=== PATIENT | male | born 1950 | race Caucasian/White ===

== ENCOUNTER 2019-03-17 15:33 | Emergency (ER) | payer MEDICARE ==
[~2019-03-17] VITALS: Ht 170.2 cm; Wt 74.0 kg
[2019-03-17] MEDS ORDERED: KEFLEX500 M1 PO (16:59)
[2019-03-17 17:03] VITALS: BP 100/65
== END 2019-03-17 17:10 | disposition home or self-care (01) ==
LOC: ED 15:33
PROC: 0HQMXZZ Repair Right Foot Skin, External Approach (ICD-10-PCS; principal; 2019-03-17)
DX: S91.114A Laceration without foreign body of right lesser toe(s) without damage to nail, initial encounter (principal); I10 Essential (primary) hypertension; E11.42 Type 2 diabetes mellitus with diabetic polyneuropathy; W27.8XXA Contact with other nonpowered hand tool, initial encounter; Y92.007 Garden or yard of unspecified non-institutional (private) residence as the place of occurrence of the external cause

== ENCOUNTER 2019-07-04 15:41 | Emergency (ER) | payer MEDICARE ==
[~2019-07-04] VITALS: Ht 170.2 cm; Wt 73.0 kg
[~2019-07-04 15:41] MED LIST: KEFLEX500 M1 PO
[2019-07-04] MEDS ORDERED: INDERAL10 M1 PO (16:34)
[2019-07-04] MEDS ORDERED: FUROSEMIDE20 MG PO (16:34)
[2019-07-04] MEDS ORDERED: ALDACTONE50 MG PO (16:35)
[2019-07-04] MEDS ORDERED: OMEPRAZOLE DR40 MG PO (16:35)
[2019-07-04] MEDS ORDERED: EZETIMIBE10 MG PO (16:35)
[2019-07-04] MEDS ORDERED: CLOPIDOGREL75 MG PO (16:36)
[2019-07-04] MEDS ORDERED: ROPINIROLE1 MG PO (16:36)
[2019-07-04 16:40] VITALS: BP 112/62
== END 2019-07-04 16:40 | disposition home or self-care (01) ==
LOC: ED 15:41
PROC: 0HQFXZZ Repair Right Hand Skin, External Approach (ICD-10-PCS; principal; 2019-07-04)
DX: S61.011A Laceration without foreign body of right thumb without damage to nail, initial encounter (principal); E11.40 Type 2 diabetes mellitus with diabetic neuropathy, unspecified; I10 Essential (primary) hypertension; W26.0XXA Contact with knife, initial encounter; Y93.89 Activity, other specified; Y92.009 Unspecified place in unspecified non-institutional (private) residence as the place of occurrence of the external cause

== ENCOUNTER 2019-07-23 13:05 | Emergency (ER) | payer MEDICARE ==
[~2019-07-23] VITALS: Ht 170.2 cm; Wt 75.0 kg
[~2019-07-23 13:05] MED LIST changes: +ALDACTONE50 MG PO; +CLOPIDOGREL75 MG PO; +EZETIMIBE10 MG PO; +FUROSEMIDE20 MG PO; +INDERAL10 M1 PO; +OMEPRAZOLE DR40 MG PO; +ROPINIROLE1 MG PO
[2019-07-23 13:28] LABS: HEMOGLOBIN 14.5 g/dl (14.0-18.0); IMMATURE GRANULOCYTES 0.6 % (0.0-5.0); MEAN CELL VOLUME 99.3 fL CALC (80.0-100.0); MEAN CORPUSCULAR HGB 32.7 pG CALC (26.0-32.0); NEUT# 10.54 thou/uL (1.82-7.42); RED BLOOD COUNT 4.43 mill/uL (4.70-6.10); RED CELL DISTRI WIDTH 14.7 % (11.5-15.5)
[2019-07-23 13:45] LABS: ALKALINE PHOSPHATASE 106 u/l (38-126); ANION GAP 13 (6-22 (CALC)); BILIRUBIN, TOTAL 1.7 mg/dL (0.0-1.4); BUN 17 mg/dL (8-23); BUN/CREATININE RATIO 21 (12-20 (CALC)); CARBON DIOXIDE 25 mmol/l (22-30); CHLORIDE 107 mmol/l (95-108); CREATININE 0.8 mg/dL (0.7-1.3); GFR > 60 ML/MIN (>=60 (CALC)); GFR FOR AFR.AMER. > 60 ML/MIN (>=60 (CALC)); LIPASE 153 u/l (23-300); SGOT/AST 33 u/l (19-48); SODIUM 141 mmol/l (137-146); TOTAL PROTEIN 7.1 g/dL (6.3-8.2)
[2019-07-23 14:53] LABS: URINE BILIRUBIN - DIPSTICK NEGATIVE (NEGATIVE); URINE BLOOD DIPSTICK NEGATIVE (NEGATIVE); URINE COLOR YELLOW; URINE GLUCOSE - DIPSTICK NEGATIVE (NEGATIVE); URINE KETONE NEGATIVE (NEGATIVE); URINE LEUK ESTERASE NEGATIVE (NEGATIVE); URINE NITRITE - DIPSTICK NEGATIVE (Negative); URINE PH 6.5 (4.5-8.0); URINE PROTEIN - DIPSTICK NEGATIVE (NEG-TRACE); URINE SPECIFIC GRAVITY 1.025
[2019-07-23 15:01] VITALS: BP 189/86
[2019-07-23] MEDS ORDERED: HYOSCYAMINE0.125 M3 PO (15:10)
== END 2019-07-23 15:23 | disposition home or self-care (01) ==
LOC: ED 13:05
PROVIDERS: Family Medicine
DX: K29.70 Gastritis, unspecified, without bleeding (principal); K25.9 Gastric ulcer, unspecified as acute or chronic, without hemorrhage or perforation; K21.9 Gastro-esophageal reflux disease without esophagitis; I10 Essential (primary) hypertension; E11.42 Type 2 diabetes mellitus with diabetic polyneuropathy
CPT/HCPCS: Q9967

== ENCOUNTER 2019-08-12 20:29 | Emergency (ER) | payer MEDICARE ==
[~2019-08-12] VITALS: Ht 170.2 cm; Wt 72.7 kg
[~2019-08-12 20:29] MED LIST changes: +HYOSCYAMINE0.125 M3 PO
[2019-08-12 22:15] LABS: HEMOGLOBIN 12.6 g/dl (14.0-18.0); IMMATURE GRANULOCYTES 0.6 % (0.0-5.0); MEAN CELL VOLUME 98.7 fL CALC (80.0-100.0); MEAN CORPUSCULAR HGB 33.4 pG CALC (26.0-32.0); MEAN CORPUSCULAR HGB CONC 33.9 g/L CALC (32.0-36.0); NEUT# 3.25 thou/uL (1.82-7.42); RED BLOOD COUNT 3.77 mill/uL (4.70-6.10); RED CELL DISTRI WIDTH 14.5 % (11.5-15.5)
[2019-08-12 22:17] LABS: GFR > 60 ML/MIN (>=60 (CALC)); GFR FOR AFR.AMER. > 60 ML/MIN (>=60 (CALC))
[2019-08-12 22:34] LABS: ALBUMIN 3.4 g/dL (3.2-5.0); ALKALINE PHOSPHATASE 94 u/l (38-126); ANION GAP 13 (6-22 (CALC)); BILIRUBIN, TOTAL 1.5 mg/dL (0.0-1.4); BUN 11 mg/dL (8-23); BUN/CREATININE RATIO 11 (12-20 (CALC)); CARBON DIOXIDE 20 mmol/l (22-30); CHLORIDE 112 mmol/l (95-108); GFR > 60 ML/MIN (>=60 (CALC)); GFR FOR AFR.AMER. > 60 ML/MIN (>=60 (CALC)); POTASSIUM 3.9 mmol/l (3.5-5.1); SGOT/AST 43 u/l (19-48); SODIUM 140 mmol/l (137-146); TOTAL PROTEIN 6.5 g/dL (6.3-8.2)
[2019-08-12 22:40] LABS: HEMATOCRIT 37.2 % (39.0-50.0)
[2019-08-12 22:45] VITALS: BP 132/78
== END 2019-08-12 22:54 | disposition short-term general hospital (02) ==
LOC: ED 20:29
PROVIDERS: Emergency Medicine
PROC: 0HQ1XZZ Repair Face Skin, External Approach (ICD-10-PCS; principal; 2019-08-12)
DX: S12.110A Anterior displaced Type II dens fracture, initial encounter for closed fracture (principal); S01.81XA Laceration without foreign body of other part of head, initial encounter; I10 Essential (primary) hypertension; E11.42 Type 2 diabetes mellitus with diabetic polyneuropathy; W18.2XXA Fall in (into) shower or empty bathtub, initial encounter; Y93.E1 Activity, personal bathing and showering
CPT/HCPCS: J3360; Q9967

== ENCOUNTER 2020-02-24 | Emergency (ER) | payer MEDICARE ==
[2020-02-24] MEDS ORDERED: OXYCODONE5 MG PO (18:35)
== END 2020-02-24 19:25 | disposition home or self-care (01) ==
PROC: 2W3CX1Z Immobilization of Right Lower Arm using Splint (ICD-10-PCS; principal; 2020-02-24)
DX: S52.501A Unspecified fracture of the lower end of right radius, initial encounter for closed fracture (principal); S52.601A Unspecified fracture of lower end of right ulna, initial encounter for closed fracture; I10 Essential (primary) hypertension; E11.42 Type 2 diabetes mellitus with diabetic polyneuropathy; W18.30XA Fall on same level, unspecified, initial encounter; Y92.009 Unspecified place in unspecified non-institutional (private) residence as the place of occurrence of the external cause

== ENCOUNTER 2020-02-27 11:36 | Emergency (ER) | payer MEDICARE ==
[~2020-02-27 11:36] MED LIST changes: +OXYCODONE5 MG PO
[2020-02-27 13:09] LABS: IMMATURE GRANULOCYTES 0.3 % (0.0-5.0); MEAN CELL VOLUME 97.3 fL CALC (80.0-100.0); MEAN CORPUSCULAR HGB 31.5 pG CALC (26.0-32.0); MEAN CORPUSCULAR HGB CONC 32.4 g/dL CAL (32.0-36.0); NEUT# 4.82 thou/uL (1.82-7.42); RED BLOOD COUNT 2.95 mill/uL (4.70-6.10); RED CELL DISTRI WIDTH 16.6 % (11.5-15.5)
[2020-02-27 13:12] LABS: HEMATOCRIT 28.7 % (39.0-50.0); HEMOGLOBIN 9.3 g/dl (14.0-18.0)
[2020-02-27 13:24] LABS: ACT PARTIAL THROMBO TIME 26.1 SECONDS (20.0-32.5); INTERNATIONAL NORMALIZED RATIO 1.2 RATIO (0.7-1.3); PROTHROMBIN TIME 12.5 SECONDS (9.0-12.5)
[2020-02-27 13:25] LABS: ALBUMIN 2.8 g/dL (3.2-5.0); ALKALINE PHOSPHATASE 81 u/l (38-126); ANION GAP 9 (6-22 (CALC)); BILIRUBIN, TOTAL 1.5 mg/dL (0.0-1.4); BUN 16 mg/dL (8-23); BUN/CREATININE RATIO 19 (12-20 (CALC)); CARBON DIOXIDE 21 mmol/l (22-30); CHLORIDE 109 mmol/l (95-108); CREATININE 0.8 mg/dL (0.7-1.3); GFR > 60 ML/MIN (>=60 (CALC)); GFR FOR AFR.AMER. > 60 ML/MIN (>=60 (CALC)); POTASSIUM 3.3 mmol/l (3.5-5.1); SGOT/AST 37 u/l (19-48); SODIUM 135 mmol/l (137-146); TOTAL PROTEIN 5.8 g/dL (6.3-8.2)
[2020-02-27 13:44] VITALS: BP 121/62
== END 2020-02-27 13:44 | disposition short-term general hospital (02) ==
LOC: ED 11:36
PROC: 0HQ0XZZ Repair Scalp Skin, External Approach (ICD-10-PCS; principal; 2020-02-27)
DX: S06.6X0A Traumatic subarachnoid hemorrhage without loss of consciousness, initial encounter (principal); S01.01XA Laceration without foreign body of scalp, initial encounter; I10 Essential (primary) hypertension; E11.42 Type 2 diabetes mellitus with diabetic polyneuropathy; W18.39XA Other fall on same level, initial encounter; Y92.007 Garden or yard of unspecified non-institutional (private) residence as the place of occurrence of the external cause; Z98.1 Arthrodesis status; Z91.81 History of falling

== ENCOUNTER 2020-03-04 09:21 | Emergency (ER) | payer MEDICARE ==
[2020-03-04] MEDS ORDERED: LACTULOSE10 GM PO (10:04)
[2020-03-04 10:30] LABS: HEMATOCRIT 31.9 % (39.0-50.0); HEMOGLOBIN 10.1 g/dl (14.0-18.0); IMMATURE GRANULOCYTES 0.4 % (0.0-5.0); MEAN CELL VOLUME 98.2 fL CALC (80.0-100.0); MEAN CORPUSCULAR HGB 31.1 pG CALC (26.0-32.0); MEAN CORPUSCULAR HGB CONC 31.7 g/dL CAL (32.0-36.0); NEUT# 4.06 thou/uL (1.82-7.42); RED BLOOD COUNT 3.25 mill/uL (4.70-6.10); RED CELL DISTRI WIDTH 15.9 % (11.5-15.5)
[2020-03-04 10:31] LABS: URINE BILIRUBIN - DIPSTICK NEGATIVE (NEGATIVE); URINE BLOOD DIPSTICK NEGATIVE (NEGATIVE); URINE COLOR YELLOW; URINE GLUCOSE - DIPSTICK NEGATIVE (NEGATIVE); URINE KETONE NEGATIVE (NEGATIVE); URINE LEUK ESTERASE NEGATIVE (NEGATIVE); URINE NITRITE - DIPSTICK NEGATIVE (Negative); URINE PH 6.5 (4.5-8.0); URINE PROTEIN - DIPSTICK NEGATIVE (NEG-TRACE); URINE SPECIFIC GRAVITY 1.015
[2020-03-04 10:32] LABS: ALBUMIN 3.2 g/dL (3.2-5.0); ALKALINE PHOSPHATASE 110 u/l (38-126); BILIRUBIN, TOTAL 1.2 mg/dL (0.0-1.4); BUN 15 mg/dL (8-23); BUN/CREATININE RATIO 17 (12-20 (CALC)); CARBON DIOXIDE 22 mmol/l (22-30); CHLORIDE 108 mmol/l (95-108); CREATININE 0.9 mg/dL (0.7-1.3); GFR > 60 ML/MIN (>=60 (CALC)); GFR FOR AFR.AMER. > 60 ML/MIN (>=60 (CALC)); LIPASE 116 u/l (23-300); SGOT/AST 44 u/l (19-48); SODIUM 136 mmol/l (137-146); TOTAL PROTEIN 6.3 g/dL (6.3-8.2)
[2020-03-04 10:46] LABS: ANION GAP 10 (6-22 (CALC)); POTASSIUM 4.4 mmol/l (3.5-5.1)
[2020-03-04] MEDS ORDERED: TRAMADOL HYDROC50 M1 PO (11:45)
[2020-03-04 12:49] VITALS: BP 125/61
== END 2020-03-04 12:59 | disposition home or self-care (01) ==
LOC: ED 09:21
PROVIDERS: Family Medicine
DX: R10.84 Generalized abdominal pain (principal); M54.6 Pain in thoracic spine; I10 Essential (primary) hypertension; E11.42 Type 2 diabetes mellitus with diabetic polyneuropathy; Z86.79 Personal history of other diseases of the circulatory system
CPT/HCPCS: Q9967

== ENCOUNTER 2020-06-28 09:33 | Emergency (ER) | payer MEDICARE ==
[~2020-06-28] VITALS: Ht 170.2 cm; Wt 80.0 kg
[~2020-06-28 09:33] MED LIST changes: +LACTULOSE10 GM PO; +TRAMADOL HYDROC50 M1 PO
[2020-06-28] MEDS ORDERED: AMOXICILLIN500 MG PO (10:41)
[2020-06-28 10:53] VITALS: BP 137/73
== END 2020-06-28 10:48 | disposition home or self-care (01) ==
LOC: ED 09:33
PROC: 0HCNXZZ Extirpation of Matter from Left Foot Skin, External Approach (ICD-10-PCS; principal; 2020-06-28)
DX: S91.142A Puncture wound with foreign body of left great toe without damage to nail, initial encounter (principal); I10 Essential (primary) hypertension; E11.42 Type 2 diabetes mellitus with diabetic polyneuropathy; W60.XXXA Contact with nonvenomous plant thorns and spines and sharp leaves, initial encounter

== ENCOUNTER 2020-07-08 17:03 | Emergency (ER) | payer MEDICARE ==
[~2020-07-08] VITALS: Ht 170.2 cm; Wt 68.2 kg
[~2020-07-08 17:03] MED LIST changes: +AMOXICILLIN500 MG PO
[2020-07-08 17:25] VITALS: BP 128/61
== END 2020-07-08 17:25 | disposition home or self-care (01) ==
LOC: ED 17:03
DX: S91.112D Laceration without foreign body of left great toe without damage to nail, subsequent encounter (principal); I10 Essential (primary) hypertension; E11.42 Type 2 diabetes mellitus with diabetic polyneuropathy; X58.XXXD Exposure to other specified factors, subsequent encounter

== ENCOUNTER 2021-02-24 09:29 | Emergency (ER) | payer MEDICARE ==
[~2021-02-24] VITALS: Ht 170.2 cm; Wt 68.0 kg
[~2021-02-24 09:29] MED LIST changes: +ESCITALOPRAM OX10 MG PO; +GENERLAC10 GM/15 M PO; +NEURONTIN300 MG PO; +NITROSTAT0.4 MG SL; +ROPINIROLE HCL2 MG PO; +ROSUVASTATIN CA40 MG PO
[2021-02-24] MEDS ORDERED: CEPHALEXIN500 MG PO (10:44)
[2021-02-24] MEDS ORDERED: TRAMADOL HYDROC50 M1 PO (11:25)
[2021-02-24 11:56] VITALS: BP 125/76
== END 2021-02-24 11:56 | disposition home or self-care (01) ==
LOC: ED 09:29
PROC: 0HQMXZZ Repair Right Foot Skin, External Approach (ICD-10-PCS; principal; 2021-02-24)
DX: S91.011A Laceration without foreign body, right ankle, initial encounter (principal); R07.81 Pleurodynia; I10 Essential (primary) hypertension; E11.42 Type 2 diabetes mellitus with diabetic polyneuropathy; E78.00 Pure hypercholesterolemia, unspecified; K74.60 Unspecified cirrhosis of liver; Z95.1 Presence of aortocoronary bypass graft; W01.0XXA Fall on same level from slipping, tripping and stumbling without subsequent striking against object, initial encounter

== ENCOUNTER 2021-03-28 21:21 | Emergency (ER) | payer MEDICARE ==
[~2021-03-28] VITALS: Ht 170.2 cm; Wt 77.0 kg
[~2021-03-28 21:21] MED LIST changes: +CEPHALEXIN500 MG PO
[2021-03-28 21:58] LABS: URINE BLOOD DIPSTICK MODERATE (NEGATIVE); URINE GLUCOSE - DIPSTICK NEGATIVE (NEGATIVE); URINE KETONE TRACE mg/dL (NEGATIVE); URINE LEUK ESTERASE TRACE (NEGATIVE); URINE PROTEIN - DIPSTICK TRACE mg/dL (NEG-TRACE); URINE UROBILINOGEN - DIPSTICK >=8.0 E.U./dL (0.2)
[2021-03-28 22:00] LABS: URINE BILIRUBIN - DIPSTICK SMALL (NEGATIVE); URINE COLOR AMBER; URINE NITRITE - DIPSTICK POSITIVE (Negative)
[2021-03-28 22:07] LABS: HEMOGLOBIN 12.6 g/dl (14.0-18.0); IMMATURE GRANULOCYTES 0.5 % (0.0-5.0); MEAN CELL VOLUME 95.1 fL CALC (80.0-100.0); MEAN CORPUSCULAR HGB 32.4 pG CALC (26.0-32.0); MEAN CORPUSCULAR HGB CONC 34.1 g/dL CAL (32.0-36.0); NEUT# 4.45 thou/uL (1.82-7.42); RED BLOOD COUNT 3.89 mill/uL (4.70-6.10); RED CELL DISTRI WIDTH 14.4 % (11.5-15.5)
[2021-03-28 22:14] LABS: URINE BACTERIA RARE hpf
[2021-03-28 22:31] LABS: INTERNATIONAL NORMALIZED RATIO 1.1 RATIO (0.7-1.3); PROTHROMBIN TIME 11.6 SECONDS (9.0-12.5)
[2021-03-28 22:32] LABS: ALKALINE PHOSPHATASE 79 u/l (38-126); AMYLASE 59 u/l (30-110); BUN 13 mg/dL (8-23); BUN/CREATININE RATIO 18 (12-20 (CALC)); CARBON DIOXIDE 22 mmol/l (22-30); CHLORIDE 100 mmol/l (95-108); CREATININE 0.7 mg/dL (0.7-1.3); ETHYL ALCOHOL 0 mg/dl (0-30); GFR > 60 ML/MIN (>=60 (CALC)); GFR FOR AFR.AMER. > 60 ML/MIN (>=60 (CALC)); LIPASE 69 u/l (23-300); POTASSIUM 3.4 mmol/l (3.5-5.1); SGOT/AST 48 u/l (19-48); TOTAL PROTEIN 6.2 g/dL (6.3-8.2)
[2021-03-28 22:39] LABS: ANION GAP 10 (6-22 (CALC)); BILIRUBIN, TOTAL 1.7 mg/dL (0.0-1.4); SODIUM 129 mmol/l (137-146)
[2021-03-28 22:44] LABS: MYOGLOBIN 69 ng/mL (0 - 121)
[2021-03-29] MEDS ORDERED: KEFLEX500 MG PO (01:10)
[2021-03-29 01:13] VITALS: BP 127/62
== END 2021-03-29 01:25 | disposition home or self-care (01) ==
LOC: ED 21:21
PROVIDERS: Emergency Medicine
DX: N39.0 Urinary tract infection, site not specified (principal); K74.60 Unspecified cirrhosis of liver; I10 Essential (primary) hypertension; E11.42 Type 2 diabetes mellitus with diabetic polyneuropathy; E78.00 Pure hypercholesterolemia, unspecified; R16.1 Splenomegaly, not elsewhere classified; K76.6 Portal hypertension; B96.1 Klebsiella pneumoniae [K. pneumoniae] as the cause of diseases classified elsewhere; Z95.1 Presence of aortocoronary bypass graft; Z20.822 Contact with and (suspected) exposure to COVID-19
CPT/HCPCS: Q9967

== ENCOUNTER 2022-03-28 12:54 | Observation (INO) | payer MEDICARE ==
[~2022-03-28] VITALS: Ht 170.2 cm; Wt 78.0 kg
[2022-03-28] VITALS (11 sets, daily range): BP systolic 102–158; BP diastolic 49–88
[~2022-03-28 12:54] MED LIST changes: +KEFLEX500 MG PO
[2022-03-28 13:21] LABS: HEMATOCRIT 37.4 % (39.0-50.0); HEMOGLOBIN 12.3 g/dl (14.0-18.0); IMMATURE GRANULOCYTES 1.2 % (0.0-5.0); MEAN CELL VOLUME 99.7 fL CALC (80.0-100.0); MEAN CORPUSCULAR HGB 32.8 pG CALC (26.0-32.0); MEAN CORPUSCULAR HGB CONC 32.9 g/dL CAL (32.0-36.0); NEUT# 1.89 thou/uL (1.82-7.42); RED BLOOD COUNT 3.75 mill/uL (4.70-6.10); RED CELL DISTRI WIDTH 14.3 % (11.5-15.5)
[2022-03-28 13:39] LABS: ALKALINE PHOSPHATASE 84 u/l (38-126); BILIRUBIN, TOTAL 1.3 mg/dL (0.0-1.4); BUN 11 mg/dL (8-23); BUN/CREATININE RATIO 13 (12-20 (CALC)); CARBON DIOXIDE 23 mmol/l (22-30); CHLORIDE 109 mmol/l (95-108); CREATININE 0.8 mg/dL (0.7-1.3); GFR FOR AFR.AMER. > 60 ML/MIN (>=60 (CALC)); GFR OTHER RACES > 60 ML/MIN (>=60 (CALC)); LIPASE 279 u/l (23-300); POTASSIUM 3.9 mmol/l (3.5-5.1); TOTAL PROTEIN 6.9 g/dL (6.3-8.2)
[2022-03-28 13:41] LABS: INTERNATIONAL NORMALIZED RATIO 1.2 RATIO (0.7-1.3); PROTHROMBIN TIME 12.1 SECONDS (9.0-12.5)
[2022-03-28 13:49] LABS: ALBUMIN 3.7 g/dL (3.2-5.0); ANION GAP 9 (6-22 (CALC)); SGOT/AST 96 u/l (19-48); SODIUM 137 mmol/l (137-146)
[2022-03-28 13:51] LABS: MYOGLOBIN 107 ng/mL (0 - 121)
[2022-03-28] MEDS ORDERED: METOPROL TAR25 MG PO (14:38)
[2022-03-28] MEDS ORDERED: ISOSORB MONO20 MG PO (14:40)
[2022-03-28] MEDS ORDERED: ASPIRIN81 MG PO (14:41)
[2022-03-29] VITALS (7 sets, daily range): BP systolic 133–156; BP diastolic 68–75
[2022-03-29 05:48] LABS: CHOLESTEROL HDL RATIO 1.8 (<4.4 (CALC)); MAGNESIUM 1.9 mg/dL (1.6-2.3)
[2022-03-29] MEDS ORDERED: ZPAK PO (11:50)
== END 2022-03-29 13:36 | disposition home or self-care (01) ==
LOC: ED 12:54 → ED-I 14:22 → ED 15:24 → MS2 15:25
PROVIDERS: Nurse Practitioner; ADMIT Internal Medicine; ATTEND Internal Medicine
DX: U07.1 COVID-19 (principal); J40 Bronchitis, not specified as acute or chronic; M94.0 Chondrocostal junction syndrome [Tietze]; I11.0 Hypertensive heart disease with heart failure; I50.9 Heart failure, unspecified; I25.10 Atherosclerotic heart disease of native coronary artery without angina pectoris; E78.5 Hyperlipidemia, unspecified; F32.A Depression, unspecified; G62.9 Polyneuropathy, unspecified; K74.60 Unspecified cirrhosis of liver

== ENCOUNTER → 2022-07-13 | Emergency (ER) | payer MEDICARE ==
[~2022-07-13] VITALS: Ht 170.2 cm; Wt 78.0 kg
[~2022-07-13] MED LIST changes: +ASPIRIN81 MG PO; +ISOSORB MONO20 MG PO; +METOPROL TAR25 MG PO; +NAPROXEN500 MG PO; +ZPAK PO
[2022-07-13 18:25] VITALS: BP 124/74
== END | disposition home or self-care (01) ==
LOC: ED 17:19
DX: S80.01XA Contusion of right knee, initial encounter (principal); S80.812A Abrasion, left lower leg, initial encounter; I10 Essential (primary) hypertension; E11.42 Type 2 diabetes mellitus with diabetic polyneuropathy; E78.00 Pure hypercholesterolemia, unspecified; Z95.1 Presence of aortocoronary bypass graft; W01.0XXA Fall on same level from slipping, tripping and stumbling without subsequent striking against object, initial encounter; Y93.H9 Activity, other involving exterior property and land maintenance, building and construction; Y92.007 Garden or yard of unspecified non-institutional (private) residence as the place of occurrence of the external cause

== ENCOUNTER 2022-08-02 12:47 | Emergency (ER) | payer MEDICARE ==
[~2022-08-02] VITALS: Ht 170.2 cm; Wt 81.8 kg
[2022-08-02] MEDS ORDERED: HYDROCO/APAP1 TA9 PO (15:08)
[2022-08-02] MEDS ORDERED: KEFLEX500 MG PO (15:08)
[2022-08-02 15:27] VITALS: BP 140/69
== END 2022-08-02 15:35 | disposition home or self-care (01) ==
LOC: ED 12:47
PROC: 0HQFXZZ Repair Right Hand Skin, External Approach (ICD-10-PCS; principal; 2022-08-02)
DX: S61.011A Laceration without foreign body of right thumb without damage to nail, initial encounter (principal); I10 Essential (primary) hypertension; E78.00 Pure hypercholesterolemia, unspecified; K74.60 Unspecified cirrhosis of liver; E11.42 Type 2 diabetes mellitus with diabetic polyneuropathy; W31.2XXA Contact with powered woodworking and forming machines, initial encounter; Y93.89 Activity, other specified; Y92.009 Unspecified place in unspecified non-institutional (private) residence as the place of occurrence of the external cause

== ENCOUNTER 2022-08-04 08:29 | Emergency (ER) | payer MEDICARE ==
[~2022-08-04] VITALS: Ht 170.2 cm; Wt 81.0 kg
[~2022-08-04 08:29] MED LIST changes: +HYDROCO/APAP1 TA9 PO
[2022-08-04] MEDS ORDERED: FUROSEMIDE20 MG PO (08:51)
[2022-08-04] MEDS ORDERED: ALDACTONE50 MG PO (08:51)
[2022-08-04 08:58] VITALS: BP 111/73
== END 2022-08-04 09:12 | disposition home or self-care (01) ==
LOC: ED 08:29
DX: S61.011D Laceration without foreign body of right thumb without damage to nail, subsequent encounter (principal); W31.2XXD Contact with powered woodworking and forming machines, subsequent encounter; I10 Essential (primary) hypertension; E11.42 Type 2 diabetes mellitus with diabetic polyneuropathy; E78.00 Pure hypercholesterolemia, unspecified; K74.60 Unspecified cirrhosis of liver

== ENCOUNTER 2022-11-15 13:51 | Emergency (ER) | payer MEDICARE ==
[~2022-11-15] VITALS: Ht 170.2 cm; Wt 70.0 kg
[2022-11-15] MEDS ORDERED: KEFLEX500 MG PO (19:22)
[2022-11-15] MEDS ORDERED: METHOCARBAMOL500 MG PO (19:22)
[2022-11-15] MEDS ORDERED: HYDROCO/APAP1 TA9 PO (19:22)
[2022-11-15] MEDS ORDERED: CIPROFLOXACN500 MG PO (19:22)
[2022-11-15 19:27] VITALS: BP 125/68
== END 2022-11-15 19:45 | disposition home or self-care (01) ==
LOC: ED 13:51
DX: S20.222A Contusion of left back wall of thorax, initial encounter (principal); S63.502A Unspecified sprain of left wrist, initial encounter; S91.331A Puncture wound without foreign body, right foot, initial encounter; I10 Essential (primary) hypertension; E11.42 Type 2 diabetes mellitus with diabetic polyneuropathy; E78.00 Pure hypercholesterolemia, unspecified; K74.60 Unspecified cirrhosis of liver; W18.39XA Other fall on same level, initial encounter; Y92.009 Unspecified place in unspecified non-institutional (private) residence as the place of occurrence of the external cause; W22.8XXA Striking against or struck by other objects, initial encounter; Y92.89 Other specified places as the place of occurrence of the external cause; Z91.81 History of falling

== ENCOUNTER 2022-11-22 03:46 | Emergency (ER) | payer MEDICARE ==
[~2022-11-22] VITALS: Ht 170.2 cm; Wt 73.0 kg
[~2022-11-22 03:46] MED LIST changes: +CIPROFLOXACN500 MG PO; +METHOCARBAMOL500 MG PO
[2022-11-22 03:52] VITALS: BP 123/73
[2022-11-22 04:00] VITALS: BP 122/64
[2022-11-22 04:15] VITALS: BP 103/59
[2022-11-22] MEDS ORDERED: BACTRIM DS1 TAB PO (04:16)
[2022-11-22 04:34] VITALS: BP 122/64
== END 2022-11-22 04:36 | disposition home or self-care (01) ==
LOC: ED 03:46
PROC: 0HCGXZZ Extirpation of Matter from Left Hand Skin, External Approach (ICD-10-PCS; principal; 2022-11-22)
DX: S61.243A Puncture wound with foreign body of left middle finger without damage to nail, initial encounter (principal); I10 Essential (primary) hypertension; E78.00 Pure hypercholesterolemia, unspecified; E11.42 Type 2 diabetes mellitus with diabetic polyneuropathy; K74.60 Unspecified cirrhosis of liver; W26.8XXA Contact with other sharp object(s), not elsewhere classified, initial encounter; Y92.009 Unspecified place in unspecified non-institutional (private) residence as the place of occurrence of the external cause; Z95.1 Presence of aortocoronary bypass graft

== ENCOUNTER 2023-01-07 22:46 | Emergency (ER) | payer MEDICARE ==
[~2023-01-07] VITALS: Ht 170.2 cm; Wt 77.0 kg
[~2023-01-07 22:46] MED LIST changes: +BACTRIM DS1 TAB PO
[2023-01-07 22:58] VITALS: BP 146/77
[2023-01-07 23:01] VITALS: BP 152/76
[2023-01-08] VITALS: BP 128/65
[2023-01-08 00:15] VITALS: BP 124/65
[2023-01-08 00:30] VITALS: BP 121/62
[2023-01-08 00:46] VITALS: BP 124/71
== END 2023-01-08 00:54 | disposition home or self-care (01) ==
LOC: ED 22:46
DX: S00.83XA Contusion of other part of head, initial encounter (principal); S16.1XXA Strain of muscle, fascia and tendon at neck level, initial encounter; I10 Essential (primary) hypertension; E78.00 Pure hypercholesterolemia, unspecified; K74.60 Unspecified cirrhosis of liver; E11.42 Type 2 diabetes mellitus with diabetic polyneuropathy; Z95.1 Presence of aortocoronary bypass graft; W01.0XXA Fall on same level from slipping, tripping and stumbling without subsequent striking against object, initial encounter; Y92.008 Other place in unspecified non-institutional (private) residence as the place of occurrence of the external cause; Z79.01 Long term (current) use of anticoagulants; Z79.02 Long term (current) use of antithrombotics/antiplatelets

== ENCOUNTER 2023-04-01 19:47 | Emergency (ER) | payer MEDICARE ==
[~2023-04-01] VITALS: Ht 170.2 cm; Wt 77.0 kg
[2023-04-01 19:55] VITALS: BP 117/62
[2023-04-01 20:31] VITALS: BP 116/64
== END 2023-04-01 20:35 | disposition home or self-care (01) ==
LOC: ED 19:47
PROC: 0HQ1XZZ Repair Face Skin, External Approach (ICD-10-PCS; principal; 2023-04-01)
DX: S01.112A Laceration without foreign body of left eyelid and periocular area, initial encounter (principal); I10 Essential (primary) hypertension; E11.42 Type 2 diabetes mellitus with diabetic polyneuropathy; E78.00 Pure hypercholesterolemia, unspecified; K74.60 Unspecified cirrhosis of liver; W19.XXXA Unspecified fall, initial encounter

== ENCOUNTER 2023-04-24 10:41 | Emergency (ER) | payer OTHER, MEDICARE ==
[~2023-04-24] VITALS: Ht 170.2 cm; Wt 74.8 kg
[2023-04-24] MEDS ORDERED: CEPHALEXIN500 MG PO (11:54)
[2023-04-24] MEDS ORDERED: TRAMADOL HYDROC50 M1 PO (11:54)
[2023-04-24 12:15] VITALS: BP 160/89
== END 2023-04-24 12:25 | disposition home or self-care (01) | DRG 605 ==
LOC: ED 10:41
PROC: 0HQGXZZ Repair Left Hand Skin, External Approach (ICD-10-PCS; principal; 2023-04-24)
DX: S61.012A Laceration without foreign body of left thumb without damage to nail, initial encounter (principal); W29.8XXA Contact with other powered hand tools and household machinery, initial encounter; I10 Essential (primary) hypertension; E11.9 Type 2 diabetes mellitus without complications; E78.00 Pure hypercholesterolemia, unspecified; K74.60 Unspecified cirrhosis of liver; Z95.1 Presence of aortocoronary bypass graft

== ENCOUNTER 2023-07-02 19:10 | Emergency (ER) | payer MEDICARE ==
[~2023-07-02] VITALS: Ht 170.2 cm; Wt 77.0 kg
[2023-07-02 20:55] VITALS: BP 158/79
== END 2023-07-02 20:58 | disposition home or self-care (01) ==
LOC: ED 19:10
PROC: 0HQFXZZ Repair Right Hand Skin, External Approach (ICD-10-PCS; principal; 2023-07-02)
DX: S61.011A Laceration without foreign body of right thumb without damage to nail, initial encounter (principal); I10 Essential (primary) hypertension; E11.42 Type 2 diabetes mellitus with diabetic polyneuropathy; E78.00 Pure hypercholesterolemia, unspecified; K74.60 Unspecified cirrhosis of liver; W45.8XXA Other foreign body or object entering through skin, initial encounter; Y93.E9 Activity, other interior property and clothing maintenance; Y92.000 Kitchen of unspecified non-institutional (private) residence as the place of occurrence of the external cause

== ENCOUNTER 2024-04-28 20:30 | Emergency (ER) | payer MEDICARE ==
[~2024-04-28] VITALS: Ht 170.2 cm; Wt 81.0 kg
[2024-04-28] MEDS ORDERED: KETOROLAC TROMETHAMINE 30 MG/ML SDV IM ONE (21:25)
[2024-04-28 23:21] VITALS: BP 108/74
== END 2024-04-28 22:51 | disposition home or self-care (01) ==
LOC: ED 20:30
DX: S40.022A Contusion of left upper arm, initial encounter (principal); I10 Essential (primary) hypertension; E11.42 Type 2 diabetes mellitus with diabetic polyneuropathy; E78.5 Hyperlipidemia, unspecified; K74.60 Unspecified cirrhosis of liver; W10.9XXA Fall (on) (from) unspecified stairs and steps, initial encounter; Y92.009 Unspecified place in unspecified non-institutional (private) residence as the place of occurrence of the external cause; Z87.81 Personal history of (healed) traumatic fracture; Z95.1 Presence of aortocoronary bypass graft

== ENCOUNTER 2024-05-05 18:20 | Emergency (ER) | payer MEDICARE ==
[~2024-05-05] VITALS: Ht 170.2 cm; Wt 81.2 kg
[2024-05-05 18:37] VITALS: BP 122/60
[2024-05-05] MEDS ORDERED: POVIDONE IODINE 0.5 OZ/BTL TOP ONE (18:40)
[2024-05-05] MEDS ORDERED: SODIUM CHLORIDE 500 ML BTL IR ONE (18:40)
[2024-05-05] MEDS ORDERED: LIDOcaine HCl 1% (Local Anesth.) 20 ML VIAL STI STA (18:40)
[2024-05-05] MEDS ORDERED: NEOMYCIN-BACITRACIN-POLYMYXIN 0.5 GM/PAK PAK TOP ONE (18:40)
[2024-05-05 18:46] VITALS: BP 113/67
[2024-05-05 19:00] VITALS: BP 121/67
[2024-05-05] MEDS ORDERED: KEFLEX500 MG PO (19:12)
[2024-05-05 19:16] VITALS: BP 134/75
[2024-05-05 19:31] VITALS: BP 137/62
[2024-05-05 19:47] VITALS: BP 144/73
== END 2024-05-05 19:55 | disposition home or self-care (01) ==
LOC: ED 18:20
PROC: 0HQFXZZ Repair Right Hand Skin, External Approach (ICD-10-PCS; principal; 2024-05-05)
DX: S61.411A Laceration without foreign body of right hand, initial encounter (principal); S61.011A Laceration without foreign body of right thumb without damage to nail, initial encounter; I10 Essential (primary) hypertension; E11.42 Type 2 diabetes mellitus with diabetic polyneuropathy; E78.00 Pure hypercholesterolemia, unspecified; K74.60 Unspecified cirrhosis of liver; W27.0XXA Contact with workbench tool, initial encounter

== ENCOUNTER 2024-05-10 11:56 | Emergency (ER) | payer MEDICARE ==
[~2024-05-10] VITALS: Ht 165.1 cm; Wt 81.2 kg
[2024-05-10 12:04] VITALS: BP 114/68
[2024-05-10] MEDS ORDERED: CEPHALEXIN500 M1 PO (12:10)
[2024-05-10 12:16] VITALS: BP 121/63
== END 2024-05-10 12:23 | disposition home or self-care (01) ==
LOC: ED 11:56
DX: T81.33XA Disruption of traumatic injury wound repair, initial encounter (principal); I10 Essential (primary) hypertension; E11.42 Type 2 diabetes mellitus with diabetic polyneuropathy; E78.00 Pure hypercholesterolemia, unspecified; K74.60 Unspecified cirrhosis of liver; Y83.8 Other surgical procedures as the cause of abnormal reaction of the patient, or of later complication, without mention of misadventure at the time of the procedure; Z95.1 Presence of aortocoronary bypass graft

== ENCOUNTER 2024-07-24 17:29 | Emergency (ER) | payer MEDICARE ==
[2024-07-24] VITALS (10 sets, daily range): BP systolic 81–112; BP diastolic 32–66
[~2024-07-24] VITALS: Ht 165.1 cm; Wt 77.0 kg
[~2024-07-24 17:29] MED LIST changes: +CEPHALEXIN500 M1 PO
== END 2024-07-24 20:03 | disposition home or self-care (01) ==
LOC: ED 17:29
DX: S20.212A Contusion of left front wall of thorax, initial encounter (principal); I10 Essential (primary) hypertension; E11.42 Type 2 diabetes mellitus with diabetic polyneuropathy; E78.5 Hyperlipidemia, unspecified; K70.30 Alcoholic cirrhosis of liver without ascites; W01.198A Fall on same level from slipping, tripping and stumbling with subsequent striking against other object, initial encounter; Y92.009 Unspecified place in unspecified non-institutional (private) residence as the place of occurrence of the external cause; Z95.1 Presence of aortocoronary bypass graft; Z95.5 Presence of coronary angioplasty implant and graft

== ENCOUNTER 2024-10-05 11:43 | Emergency (ER) | payer MEDICARE ==
[2024-10-05] VITALS (12 sets, daily range): BP systolic 103–127; BP diastolic 51–72
[~2024-10-05] VITALS: Ht 170.2 cm; Wt 74.0 kg
[~2024-10-05 11:43] MED LIST changes: +LORTAB 1010 MG PO; +VIBRAMYCIN100 M2 PO
[2024-10-05 12:32] LABS: BASO% 0.3 % (0-3); EOS% 3.5 % (0-8); HEMATOCRIT 37.2 % (39.0-50.0); HEMOGLOBIN 12.4 g/dl (14.0-18.0); IMMATURE GRANULOCYTES 0.2 % (0.0-5.0); LYMPH% 11.9 % (15-41); MEAN CELL VOLUME 98.7 fL CALC (80.0-100.0); MEAN CORPUSCULAR HGB 32.9 pG CALC (26.0-32.0); MEAN CORPUSCULAR HGB CONC 33.3 g/dL CAL (32.0-36.0); MONO% 11.2 % (2-13); NEUT# 4.77 thou/uL (1.82-7.42); NEUT% 72.9 % (42-76); RED BLOOD COUNT 3.77 mill/uL (4.70-6.10); RED CELL DISTRI WIDTH 13.9 % (11.5-15.5)
[2024-10-05 12:52] LABS: INTERNATIONAL NORMALIZED RATIO 1.1 RATIO (0.7-1.3)
[2024-10-05 12:53] LABS: PROTHROMBIN TIME 11.4 SECONDS (9.0-12.5)
[2024-10-05 12:59] LABS: ALBUMIN 3.3 g/dL (3.2-5.0); BILIRUBIN, TOTAL 1.1 mg/dL (0.2-1.3); CREATININE 0.9 mg/dL (0.7-1.3); POTASSIUM 3.9 mmol/l (3.5-5.1); TOTAL PROTEIN 6.1 g/dL (6.3-8.2)
[2024-10-05] MEDS ORDERED: MECLIZINE 2525 MG PO (14:19)
== END 2024-10-05 15:00 | disposition home or self-care (01) ==
LOC: ED 11:43
PROVIDERS: Family Medicine
DX: S40.012A Contusion of left shoulder, initial encounter (principal); R42 Dizziness and giddiness; I10 Essential (primary) hypertension; I25.10 Atherosclerotic heart disease of native coronary artery without angina pectoris; E78.5 Hyperlipidemia, unspecified; K74.60 Unspecified cirrhosis of liver; G62.9 Polyneuropathy, unspecified; W01.198A Fall on same level from slipping, tripping and stumbling with subsequent striking against other object, initial encounter; Z95.1 Presence of aortocoronary bypass graft

== ENCOUNTER 2024-11-26 22:06 | Emergency (ER) | payer MEDICARE ==
[~2024-11-26] VITALS: Ht 170.2 cm; Wt 80.0 kg
[~2024-11-26 22:06] MED LIST changes: +MECLIZINE 2525 MG PO
[2024-11-26] MEDS ORDERED: ALUM & MAG HYDROX-SIMETHICONE 30 ML PO ONE (22:40)
[2024-11-26] MEDS ORDERED: KETOROLAC TROMETHAMINE 30 MG/ML SDV IV ONE (22:40)
[2024-11-26] MEDS ORDERED: LIDOCAINE VISCOUS 2% 15 ML UDC PO ONE (22:40)
[2024-11-26] MEDS ORDERED: ACETAMINOPHEN 500 MG TAB PO ONE (22:40)
[2024-11-26 22:54] LABS: BASO% 0.2 % (0-3); EOS% 2.9 % (0-8); HEMATOCRIT 39.5 % (39.0-50.0); IMMATURE GRANULOCYTES 0.2 % (0.0-5.0); MEAN CELL VOLUME 99.2 fL CALC (80.0-100.0); MEAN CORPUSCULAR HGB 32.7 pG CALC (26.0-32.0); MEAN CORPUSCULAR HGB CONC 32.9 g/dL CAL (32.0-36.0); MONO% 12.9 % (2-13); NEUT# 5.84 thou/uL (1.82-7.42); NEUT% 69.8 % (42-76); RED BLOOD COUNT 3.98 mill/uL (4.70-6.10)
[2024-11-26 23:08] LABS: ALBUMIN 3.8 g/dL (3.2-5.0); BILIRUBIN, TOTAL 1.5 mg/dL (0.2-1.3); TOTAL PROTEIN 6.8 g/dL (6.3-8.2)
[2024-11-26 23:09] VITALS: BP 73/43
[2024-11-26 23:12] VITALS: BP 69/34
[2024-11-26 23:12] LABS: POTASSIUM 3.3 mmol/l (3.5-5.1)
[2024-11-26 23:15] VITALS: BP 74/39
[2024-11-26] MEDS ORDERED: SODIUM CHLORIDE 0.9% 1,000 ML IV ONE ×2 (23:15→23:55)
[2024-11-26 23:26] LABS: ACT PARTIAL THROMBO TIME 25.6 SECONDS (20.0-32.5); D-DIMER 1.12 mg/L (0.19-0.60); INTERNATIONAL NORMALIZED RATIO 1.1 RATIO (0.7-1.3)
[2024-11-26 23:30] VITALS: BP 84/50
[2024-11-26 23:41] LABS: PROTHROMBIN TIME 11.6 SECONDS (9.0-12.5)
[2024-11-26] MEDS ORDERED: Heparin SODIUM (Porcine) 500 ML IV ONE (23:45)
[2024-11-26] MEDS ORDERED: Heparin SODIUM (Porcine) 5,000 UNITS/ML SDV IV ONE (23:45)
[2024-11-26] MEDS ORDERED: POTASSIUM CHLORIDE 20 MEQ/TAB PO ONE (23:55)
[2024-11-26 23:58] VITALS: BP 81/51
[2024-11-27] VITALS (9 sets, daily range): BP systolic 77–111; BP diastolic 49–60
== END 2024-11-27 01:45 ==
LOC: ED 22:06
PROVIDERS: Family Medicine
DX: R07.9 Chest pain, unspecified (principal); R79.89 Other specified abnormal findings of blood chemistry; I10 Essential (primary) hypertension; I25.10 Atherosclerotic heart disease of native coronary artery without angina pectoris; E78.00 Pure hypercholesterolemia, unspecified; K74.60 Unspecified cirrhosis of liver; G62.9 Polyneuropathy, unspecified
CPT/HCPCS: J1644

== ENCOUNTER 2024-12-31 14:23 | Emergency (ER) | payer MEDICARE ==
[2024-12-31] VITALS (10 sets, daily range): BP systolic 102–132; BP diastolic 47–70
[~2024-12-31] VITALS: Ht 170.2 cm; Wt 190.0 kg
[2024-12-31 15:52] LABS: URINE BILIRUBIN - DIPSTICK Negative (NEGATIVE); URINE BLOOD DIPSTICK Negative (NEGATIVE); URINE COLOR Yellow; URINE GLUCOSE - DIPSTICK Negative (NEGATIVE); URINE KETONE Trace mg/dL (NEGATIVE); URINE LEUK ESTERASE Negative (NEGATIVE); URINE NITRITE - DIPSTICK Negative (Negative); URINE PROTEIN - DIPSTICK Negative (NEG-TRACE); URINE SPECIFIC GRAVITY 1.015; URINE UROBILINOGEN - DIPSTICK 0.2 E.U./dL (0.2)
[2024-12-31 15:55] LABS: BASO% 0.2 % (0-3); EOS% 2.9 % (0-8); HEMATOCRIT 33.8 % (39.0-50.0); HEMOGLOBIN 11.1 g/dl (14.0-18.0); IMMATURE GRANULOCYTES 0.4 % (0.0-5.0); LYMPH% 14.5 % (15-41); MEAN CELL VOLUME 101.5 fL CALC (80.0-100.0); MEAN CORPUSCULAR HGB 33.3 pG CALC (26.0-32.0); MEAN CORPUSCULAR HGB CONC 32.8 g/dL CAL (32.0-36.0); MONO% 11.4 % (2-13); NEUT# 3.35 thou/uL (1.82-7.42); NEUT% 70.6 % (42-76); RED BLOOD COUNT 3.33 mill/uL (4.70-6.10); RED CELL DISTRI WIDTH 15.4 % (11.5-15.5)
[2024-12-31 16:03] LABS: ALBUMIN 3.3 g/dL (3.2-5.0); BILIRUBIN, TOTAL 1.4 mg/dL (0.2-1.3); CREATININE 0.8 mg/dL (0.7-1.3); POTASSIUM 3.6 mmol/l (3.5-5.1); TOTAL PROTEIN 5.9 g/dL (6.3-8.2)
[2024-12-31] MEDS ORDERED: AMOX/K CLAV875 M1 PO (17:23)
== END 2024-12-31 17:49 | disposition home or self-care (01) ==
LOC: ED 14:23
PROVIDERS: Family Medicine
DX: L03.116 Cellulitis of left lower limb (principal); R06.02 Shortness of breath; I25.10 Atherosclerotic heart disease of native coronary artery without angina pectoris; I25.2 Old myocardial infarction; K74.60 Unspecified cirrhosis of liver; G62.9 Polyneuropathy, unspecified; Z95.1 Presence of aortocoronary bypass graft; Z79.02 Long term (current) use of antithrombotics/antiplatelets

== ENCOUNTER 2025-01-04 01:49 | Emergency (ER) | payer MEDICARE ==
[2025-01-04] VITALS (10 sets, daily range): BP systolic 107–130; BP diastolic 52–68
[~2025-01-04] VITALS: Ht 170.2 cm; Wt 85.0 kg
[~2025-01-04 01:49] MED LIST changes: +AMOX/K CLAV875 M1 PO
[2025-01-04] MEDS ORDERED: MORPHINE SULFATE 4 MG/ML VIAL IV ONE (02:00)
[2025-01-04] MEDS ORDERED: ASPIRIN 81 MG/TAB PO ONE (02:00)
[2025-01-04] MEDS ORDERED: ONDANSETRON HCl 4 MG/2 ML SDV IV ONE (02:05)
[2025-01-04] MEDS ORDERED: Pantoprazole Sodium 40 MG VIAL (Protonix) IV ONE (02:10)
[2025-01-04 02:23] LABS: BASO% 0.2 % (0-3); EOS% 2.2 % (0-8); HEMOGLOBIN 9.9 g/dl (14.0-18.0); IMMATURE GRANULOCYTES 0.6 % (0.0-5.0); MEAN CELL VOLUME 101.7 fL CALC (80.0-100.0); MEAN CORPUSCULAR HGB 33.6 pG CALC (26.0-32.0); MONO% 13.9 % (2-13); NEUT# 3.67 thou/uL (1.82-7.42); NEUT% 72.1 % (42-76); RED BLOOD COUNT 2.95 mill/uL (4.70-6.10); RED CELL DISTRI WIDTH 15.7 % (11.5-15.5)
[2025-01-04 02:34] LABS: ALBUMIN 3.4 g/dL (3.2-5.0); BILIRUBIN, TOTAL 1.1 mg/dL (0.2-1.3); CREATININE 0.8 mg/dL (0.7-1.3); POTASSIUM 3.3 mmol/l (3.5-5.1); TOTAL PROTEIN 6.3 g/dL (6.3-8.2)
[2025-01-04] MEDS ORDERED: FUROSEMIDE 40 MG/4 ML SDV IV ONE (03:05)
== END 2025-01-04 06:14 | disposition short-term general hospital (02) ==
LOC: ED 01:49
PROVIDERS: Family Medicine
DX: K92.2 Gastrointestinal hemorrhage, unspecified (principal); I10 Essential (primary) hypertension; I25.10 Atherosclerotic heart disease of native coronary artery without angina pectoris; E78.00 Pure hypercholesterolemia, unspecified; K74.60 Unspecified cirrhosis of liver; G62.9 Polyneuropathy, unspecified; Z20.822 Contact with and (suspected) exposure to COVID-19
CPT/HCPCS: J1940; J2405; J2470; Q9967